=== PATIENT | male | born 1980 | race Two or more races ===

== ENCOUNTER 2017-03-09 08:27 | Emergency (ER) | payer BC, OTHER ==
--- NOTE | 2017-03-09 08:37 | PDOC ---
Attending Attestation - Resident Resident Name: Teena Cardoso - ED Attending Attestation I have performed the following: I have examined & evaluated the patient, The case was reviewed & discussed with the resident, I agree w/resident's findings & plan, Exceptions are as noted - HPI HPI: 03/09/17 08:57 The patient is a 36-year-old male with a significant past medical history of recurrent loss of consciousness (apparently extensively worked up and presumed to be vasovagal), who presents to the emergency department after a loss of consciousness. It was preceded by a feeling of flushing, nausea. He fell to the floor, and does not recall the events. When he woke up, he noted that he had bowel incontinence. He has never had loss of consciousness following exertion. 03/09/17 08:58 - Physicial Exam PE: 03/09/17 08:58 He is well-appearing and in no acute distress No murmurs - Medical Decision Making 03/09/17 10:[address] noted We have suggested that he follow-up with his primary care physician, cardiology and neurology, and provided him with referrals to the specialists Clinical impression: Non-high risk loss of consciousness I discussed the physical exam findings, ancillary test results and final diagnoses with the patient. I answered all of the patient's questions. The patient was satisfied with the care received and felt comfortable with the discharge plan and treatment plan. The patient will call their primary care physician within 24 hours to arrange follow-up and will return to the Emergency Department with any new, persistent or worsening symptoms. Discharge Disposition - Diagnosis Syncope - Discharge Dispostion Disposition: HOME - Referrals Referrals: Santo Fuentes MD [Primary Care Provider] - Oscar Ivey MD [Staff Physician] - Call tomorrow (See this neurologist for further evaluation) Meredith Steel MD [Staff Physician] - Call tomorrow (See this installer metal flooring for further evaluation) - Patient Instructions Printed Discharge Instructions: DI for Syncope in Adults (Fainting) Additional Instructions: Return to the emergency department immediately with ANY new, persistent or worsening symptoms. You MUST call and follow up with your doctor tomorrow. Please make sure your doctor reviews the results of your emergency department evaluation. - Post Discharge Activity Work/School Note: Back to Work
--- NOTE | 2017-03-09 08:44 | PDOC ---
History of Present Illness - General Stated Complaint: PASTED OUT/SWEATING Time Seen by Provider: 03/09/17 08:37 History Source: Patient Exam Limitations: No Limitations - History of Present Illness Initial Comments: 03/09/17 08:53 This is a 36 yo M with PMH of frequent LOC episodes and mild asthma, who presents due to LOC. Patient was sitting on a chair last night when he felt a prodrome of nausea, flushing heat and weakness. He woke up face down on the flood, having vomited and defecated. Patent has been having loc episodes with above prodrome since 19 yo, about 6-10 per year. He has experienced associated bowel incontinence once before at 19. Some of his episodes have been witnessed, and he was described to occasionally shake a little. He has had a negative cardiac w/u in the past that was negative, possibly w/o a tte. He has never seen a neurologist, had eeg or a neuro w/u. he has had multiple negative CT and MRI scan of head in EDs. He denies history of head trauma, severe febrile illness, meningitis of hospitalizations. He denies exertional syncope. PCP: Dr Santo Fuentes 03/09/17 09:39 03/09/17 09:47 03/09/17 10:[address] unremarkable. Past History - Past Medical History Allergies/Adverse Reactions: Allergies Allergy/AdvReac Type Severity Reaction Status Date / Time No Known Allergies Allergy Verified 03/09/17 08:53 Home Medications: Ambulatory Orders NK [No Known Home Medication] 03/09/17 Review of Systems - Review of Systems Able to Perform ROS?: Yes Is the patient limited Kiswahili proficient: No Constitutional: No: Chills, Fever, Weakness HEENTM: No: Blurred Vision, Double Vision, Nose Congestion, Throat Pain Respiratory: No: Cough, Orthopnea, Shortness of Breath Cardiac (ROS): No: Chest Pain, Edema, Irregular Heart Rate, Palpitations ABD/GI: No: Abdominal Distended, Constipated, Diarrhea, Nausea, Vomiting, Abdominal cramping : No: Dysuria, Flank Pain Musculoskeletal: No: Back Pain, Joint Pain Integumentary: No: Bruising, Erythema, Rash Neurological: No: Headache, Numbness, Paresthesia, Pre-Existing Deficit, Seizure , Tingling, Tremors, Weakness, Unsteady Gait, Ataxia, Dizziness Psychiatric: No: Anxiety, Depression Endocrine: No: Intolerance to Cold, Intolerance to Heat Hematologic/Lymphatic: No: Anemia, Blood Clots, Easy Bruising All Other Systems: Reviewed and Negative *Physical Exam - Physical Exam Comments: 03/09/17 09:54 GENERAL: AAOx3 NAD HEENT: normocephalic, atraumatic, PERRLA, EOMI, sclera anicteric, conjunctiva clear CV: RRR S1S2, no murmur, no jvd PULM: CTA b/l GI: soft, nondistended, normoactive bowel sounds, nontender,no guarding MUSCULOSKELETAL: no peripheral edema, no calf tenderness NEURO: CN II-XII intact, strenght 5/5 in extremities, 1+ bicep and patellar reflexes b/l, sensation intact. Heart Score/ECG Review #1 General ECG Interpretation: Sinus Rhythm, Normal Rate, Normal Intervals, No acute ischemic changes ED Treatment Course - LABORATORY CBC & Chemistry Diagram: 03/09/17 08:54 03/09/17 08:54 Medical Decision Making - Medical Decision Making 03/09/17 09:56 Patient presents with loc episode. R/o cardiac, neuro and metabolic causes EKG CT head w/o contrast cbc w diff, cmp, mag 03/09/17 09:57 EKG unremarkable CBC, CMP unremarkable 03/09/17 09:57 Non high risk LOC 03/09/17 10:30 Patient stable to d/c home with PCP, cardiology and neurology f/u *DC/Admit/Observation/Transfer Diagnosis at time of Disposition: Loss of consciousness - Discharge Dispostion Disposition: HOME Condition at time of disposition: Good Admit: No - Referrals Referrals: Meredith Steel MD [Staff Physician] - Call tomorrow (See this roller painter for further evaluation) Oscar Ivey MD [Staff Physician] - Call tomorrow (See this neurologist for further evaluation) Santo Fuentes MD [Primary Care Provider] - - Patient Instructions Printed Discharge Instructions: DI for Syncope in Adults (Fainting) Additional Instructions: Return to the emergency department immediately with ANY new, persistent or worsening symptoms. You MUST call and follow up with your doctor tomorrow. Please make sure your doctor reviews the results of your emergency department evaluation.
[2017-03-09 09:14] LABS: BASOPHIL 0.5 % (0-2.0); EOSINOPHIL 1.3 % (0-4.5); MCH 30.4 pg (25.7-33.7); MCHC 33.7 g/dl (32.0-35.9); MEAN CELL VOLUME 90.4 fl (80-96); MEAN PLT VOLUME 7.5 fl (7.5-11.1); NEUTROPHILS 71.7 % (42.8-82.8); PLATELET COUNT 326 K/MM3 (134-434); RDW 13.2 % (11.9-15.9); WHITE BLOOD COUNT 8.7 K/mm3 (4.0-10.0)
[2017-03-09 09:15] VITALS: TEMP 98.6; BMI 28.7
[2017-03-09 09:39] LABS: ALK PHOS 75 U/L (45-117); ANION GAP 6 (8-16); BILIRUBIN,TOTAL 0.2 mg/dL (0.2-1.0); CALCIUM 9.3 mg/dL (8.5-10.1); CO2 26 mmol/L (21-32); CREATININE 0.9 mg/dL (0.7-1.3); GLUCOSE,RANDOM 114 mg/dL (74-106); MAGNESIUM 2.2 mg/dL (1.8-2.4); SGOT/AST 16 U/L (15-37); SGPT/ALT 24 U/L (12-78); TOT PROT 7.3 g/dl (6.4-8.2)
[2017-03-09 11:14] VITALS: BP 127/72; PULSE 63
--- NOTE | 2017-03-09 12:23 | EKG ---
Test Reason : Blood Pressure : / mmHG Vent. Rate : 075 BPM Atrial Rate : 075 BPM P-R Int : 154 ms QRS Dur : 100 ms QT Int : 406 ms P-R-T Axes : 063 025 040 degrees QTc Int : 453 ms NORMAL SINUS RHYTHM NORMAL ECG NO PREVIOUS ECGS AVAILABLE Confirmed by MARBELLA JORDAN MD ([id number]) on 03/09/2017 12:23:27 PM Referred By: Confirmed By:MARBELLA JORDAN MD
== END 2017-03-09 10:54 | disposition home or self-care (01) ==
LOC: JER 08:27
DX: R55 Syncope and collapse (principal)
CPT/HCPCS: 36415; 70450-TC; 80053; 83735; 85025; 93005; 93010; 99284-25

== ENCOUNTER 2017-08-23 06:05 | Emergency (ER) | payer BC, OTHER ==
[2017-08-23 06:35] VITALS: TEMP 99; BMI 30.1
[2017-08-23] MEDS ORDERED: KETOROLAC TROMETHAMINE 30 MG/1 ML VIAL IM ONE (07:11)
[2017-08-23] MEDS ORDERED: KETOROLAC TROMETHAMINE 30 MG/1 ML VIAL ONE (07:17)
--- NOTE | 2017-08-23 07:42 | PDOC ---
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 He states the episodes happen about 4-6 times a year. He says they are not seizures, neg EEG, neg Holter results and MRI's are pending approval from insurance. Today he presents with c/o left arm pain after a syncopal episode this early AM. He has full ROM and no numbness or tingling. He drove him self in. He denies falling on the arm but does not know what happen after the sycopal episode Past History - Past Medical History Allergies/Adverse Reactions: Allergies Allergy/AdvReac Type Severity Reaction Status Date / Time No Known Allergies Allergy Verified 08/23/17 06:32 Home Medications: Ambulatory Orders NK [No Known Home Medication] 03/09/17 Asthma: Yes - Suicide/Smoking/Psychosocial Hx Smoking History: Current every day smoker Have you smoked in the past 12 months: No Information on smoking cessation initiated: No Hx Alcohol Use: (ocassional) Drug/Substance Use Hx: Yes Substance Use Type: None Review of Systems - Review of Systems Able to Perform ROS?: Yes Is the patient limited Faroese proficient: Yes Musculoskeletal: Yes: See HPI All Other Systems: Reviewed and Negative *Physical Exam - Vital Signs Last Vital Signs Temp Pulse Resp BP Pulse Ox 99 F 92 H 16 145/90 99 08/23/17 06:31 08/23/17 06:31 08/23/17 06:31 08/23/17 06:31 08/23/17 06:31 - Physical Exam HEENT: positive: Normal Voice Respiratory/Chest: positive: Lungs Clear Cardiovascular: positive: Regular Rate Gastrointestinal/Abdominal: positive: Normal Bowel Sounds, Flat, Soft Musculoskeletal: positive: Normal Inspection, Other (left shoulder, with FROM with muscular type pain) ED Treatment Course - RADIOLOGY Radiology Studies Ordered: Category Date Time Status SHOULDER-LEFT [RAD] Stat Radiology 08/23/17 07:11 Ordered - Medications Given in the ED: ED Medications Discontinued Medications Generic Name Dose Route Start Last Admin Trade Name Freq PRN Reason Stop Dose Admin Ketorolac Tromethamine 30 mg 08/23/17 07:11 08/23/17 07:21 Toradol Injection - IM 08/23/17 07:12 30 mg ONCE ONE Administration Medical Decision Making - Medical Decision Making 08/23/17 08:33 Pt with c/o left shoulder pain after a episode of loss of consciousness at home Drove himself here and no signs of injury Neg pain on palpation FROM and denies pain when moving Plan -shoulder xray -toradol for pain -EKG NSR 08/23/17 08:46 CXR neg, marking noted on ray unknown, no implants, wears nipple rings but being that is's higher, may be artifact, no pain at region Feeling better and being discharged *DC/Admit/Observation/Transfer Diagnosis at time of Disposition: Shoulder pain, left Qualifiers: Chronicity: acute Qualified Code(s): M25.512 - Pain in left shoulder - Discharge Dispostion Disposition: HOME Condition at time of disposition: Stable Admit: No - Referrals Referrals: Santo Fuentes MD [Primary Care Provider] - - Patient Instructions Printed Discharge Instructions: DI for Shoulder Pain Additional Instructions: Discharge instructions 1. ice to shoulder area today 2. You can use tylenol today for pain and tomorrow start motrin for pain 3. avoid heavy lifting for a few days. - Post Discharge Activity Forms/Work/School Notes: Back to Work
[2017-08-23 09:05] VITALS: BP 140/80; PULSE 80
--- NOTE | 2017-08-23 10:22 | EKG ---
Test Reason : Blood Pressure : / mmHG Vent. Rate : 072 BPM Atrial Rate : 072 BPM P-R Int : 150 ms QRS Dur : 112 ms QT Int : 410 ms P-R-T Axes : 072 037 047 degrees QTc Int : 448 ms NORMAL SINUS RHYTHM NORMAL ECG WHEN COMPARED WITH ECG OF 09-MAR-2017 09:15, NO SIGNIFICANT CHANGE WAS FOUND Confirmed by ZAK BAKER MD ([id number]) on 08/23/2017 10:22:18 AM Referred By: Confirmed By:ZAK BAKER MD
== END 2017-08-23 09:05 | disposition home or self-care (01) ==
LOC: JER 06:05
PROC: 3E0233Z Introduction of Anti-inflammatory into Muscle, Percutaneous Approach (ICD-10-PCS; principal; 2017-08-23)
DX: M25.512 Pain in left shoulder (principal); R55 Syncope and collapse
CPT/HCPCS: 73030-TC-LT; 93005; 93010; 99281-25